=== PATIENT | female | born 1990 | race Caucasian/White ===

== ENCOUNTER 2021-12-05 12:16 | Emergency (ER) | payer OTHER, SELFPAY ==
[2021-12-05 12:24] VITALS: BP 146/76; PULSE 79; RESP 20; TEMP 36.4; O2SAT 98
--- NOTE | 2021-12-05 12:45 | ED.GENADULT ---
HPI - General Adult General Chief complaint: Upper Respiratory Infection Stated complaint: Sore Throat Source: patient Mode of arrival: ambulatory Limitations: no limitations History of Present Illness HPI narrative: Patient presents for evaluation of generalized body aches. Symptom onset this morning. He denies any fever, chills, nausea, vomiting, cough, shortness of breath, sore throat, diarrhea or other symptoms. He took a home COVID test this morning which was negative. No personal history of COVID. He has received COVID vaccination. He is a that he is caring for, so he wanted to ensure he did not expose his child to any illness. He is a former smoker. He is not taking any medications to assist with his symptoms. Related Data Allergies Allergy/AdvReac Type Severity Reaction Status Date / Time No Known Allergies Allergy Verified 12/05/21 12:42 Review of Systems Review of Systems: CONSTITUTIONAL: Denies fever, chills, or sweats. EYES: Denies visual changes, redness, or discharge. ENT: Denies rhinorrhea, congestion, sore throat, or otalgia. CARDIOVASCULAR: Denies chest pain, palpitations, or edema. RESPIRATORY: Denies cough or dyspnea. GASTROINTESTINAL: Denies abdominal pain, nausea, vomiting, or diarrhea. GENITOURINARY: Denies dysuria or hematuria. SKIN: Denies rash or itching. MUSCULOSKELETAL: Reports generalized body aches NEUROLOGIC: Denies headache, numbness, dizziness, or weakness. PSYCHIATRIC: Denies anxiety or depression. [facility] Past Medical History Medical History (Updated 12/05/21 @ 13:07 by Cash Lopez, ORDER PACKER OR PACKAGER, ) History of anal fissures Surgical History Surgical History No pertinent past surgical history Family History Family History Mother Family history non-contributory Social History Social History Smoking status: Former smoker Alcohol intake: current Substance use: former Substance use type: marijuana Living arrangements: with family Gender identity (if verbalized by the patient): Male Sexual Orientation (if Verbalized by the Patient): Straight or Heterosexual Spiritual care concerns: No Exam Narrative: GENERAL: Well-appearing, well-nourished, and in no acute distress. HEAD: Normocephalic, atraumatic. EYES: PERRLA and EOMI. ENT: Nares clear, no rhinorrhea or epistaxis. Mucous membranes moist. Oropharynx without tonsillar hypertrophy exudate or other lesions. Bilateral TMs pearly lechuga nonbulging NECK: Supple. No adenopathy or masses. No carotid bruits or JVD CHEST: Clear to auscultation. No respiratory distress. No wheezes rales or rhonchi HEART: Regular rate and rhythm. No murmur heard. Normal peripheral pulses. ABDOMEN: Soft, nontender, nondistended, normal active bowel sounds. EXTREMITIES: Normal range of motion. No edema. SKIN: Warm, dry, no rash. NEURO: No focal deficits. Alert and oriented x3. PSYCH: Normal mood and affect. Course Course Emergency Course: This is a 31-year-old male that presented for evaluation of generalized body aches with symptom onset today. COVID and influenza were negative. I did advise that he quarantine and repeat his testing tomorrow in the next few days to ensure that he is indeed negative. We did send off a COVID PCR. He should increase hydration. [id number] agents may help. Follow-up outpatient for further evaluation and treatment and go to the ER for worsening symptoms. Patient in agreement with plan of care Level of Care: Express Care Visit Vital Signs Vital signs: Vital Signs Temperature 36.4 C 12/05/21 12:24 Pulse Rate 79 12/05/21 12:24 Respiratory Rate 20 12/05/21 12:24 Blood Pressure 146/76 H 12/05/21 12:24 Pulse Oximetry 98 12/05/21 12:24 Oxygen Delivery Room Air 12/05/21 12:24 Temperature
[2021-12-05 18:34] LABS: SARS-CoV-2 RNA PCR Negative
== END 2021-12-05 13:08 | disposition home or self-care (01) ==
PROVIDERS: Emergency Provider Nurse Practitioner
DX: B34.9 Viral infection, unspecified (principal); Z20.822 Contact with and (suspected) exposure to COVID-19; Z87.891 Personal history of nicotine dependence
CPT/HCPCS: 87426; 87804; 99213; C9803; G0463; U0003; U0005